=== PATIENT | male | born 1970 | race Caucasian/White ===

== ENCOUNTER 2016-10-19 00:18 | Emergency (ER) | payer BC ==
--- NOTE | 2016-10-19 01:07 | EDM.PDOC ---
ED HPI RENAL/ - General Chief Complaint: Genitourinary Problem Stated Complaint: kidney stone Time Seen by Provider: 10/19/16 00:50 Source of Information: Reports: Patient History Limitations: Reports: No limitations - History of Present Illness INITIAL COMMENTS - FREE TEXT/NARRATIVE: Patient presents with a kidney stone that he passed here in the ER while urinating in a container. He says his right sided abdominal pain was 7/10 at the most and is now down to 4. He doesn't want anything for the pain but does want to know if more stones are in the ureter or just in the kidneys. He had a CT a year ago and thinks he has 7 stones in right kidney and 6 in left. He felt a stinging pain in his penis as the stone exited but denies any other pain with urination. Urine is clear in appearance and the stone is visible. I would estimate 4-5 mm in size. - Related Data Allergies/ADRs: Allergies Allergy/AdvReac Type Severity Reaction Status Date / Time No Known Drug Allergies Allergy Cannot Verified 10/19/16 00:26 Remember Home Meds: Home Meds Lisinopril 20 mg PO DAILY 10/19/16 [History] ED ROS GENERAL - Review of Systems Review Of Systems: See Below Constitutional: Denies: fever, chills HEENT: Denies: Throat pain Respiratory: Denies: Shortness of Breath Cardiovascular: Denies: Chest pain, Syncope GI/Abdominal: Reports: Abdominal pain. Denies: Nausea, Vomiting : Reports: flank pain (right side). Denies: dysuria, hematuria Musculoskeletal: Reports: no symptoms Skin: Denies: cyanosis, jaundice, mottled, pallor, diaphoresis Neurological: Denies: Confusion, Dizziness, Headache, Seizure, Syncope Psychiatric: Denies: Agitation, Anxiety, Confusion ED EXAM, RENAL/ - Physical Exam Exam: See Below Exam Limited By: No limitations General Appearance: alert, WD/WN, no apparent distress Eye Exam: bilateral eye: EOMI, normal inspection, PERRL Ears: normal external exam, hearing grossly normal Nose: normal inspection, no blood Throat/Mouth: Normal voice, No airway compromise Head: atraumatic, normocephalic Neck: full range of motion Respiratory/Chest: no respiratory distress, lungs clear, normal breath sounds Cardiovascular: regular rate, rhythm, no murmur GI/Abdominal: soft, non tender Back Exam: No: CVA tenderness (L), CVA tenderness (R) Extremities: normal inspection, normal range of motion Neurological: alert, oriented, normal cognition, no motor/sensory deficits Psychiatric: normal affect, normal mood Skin Exam: Warm, Dry, Intact, Normal color, No rash Course - Vital Signs Last Recorded V/S: Last Vital Signs Temp 98.6 F 10/19/16 00:46 Pulse 86 10/19/16 00:46 Resp 20 10/19/16 00:46 BP 154/94 H 10/19/16 00:46 Pulse Ox 96 10/19/16 00:46 - Orders/Labs/Meds Orders: Active Orders 24 hr Category Date Time Status Abdomen Pelvis wo Cont [CT] Stat Exams 10/19/16 00:34 Ordered - Re-Assessments/Exams Free Text/Narrative Re-Assessment/Exam: 10/19/16 01:57 CT shows bilat non-obstructing nephrolithiasis and no other acute pathology. Discussed findings with patient who is comfortable and doesn't wish to have anything for pain now. Patient discharged in stable condition. Departure - Departure Time of Disposition: 01:55 Disposition: Home, Self-Care 01 Condition: good Clinical Impression: Recurrent nephrolithiasis Instructions: Kidney Stones, [id number] Forms: ED Department Discharge Additional Instructions: 1. Drink 8 cups of water daily to help prevent more stones from forming. 2. You may take Ibuprofen 600 mg up to three times a day for pain if needed. 3. Follow up with your PCP as needed. - My Orders Last 24 Hours: My Active Orders 10/19/16 00:34 Abdomen Pelvis wo Cont [CT] Stat - Assessment/Plan Last 24 Hours: My Active Orders 10/19/16 00:34 Abdomen Pelvis wo Cont [CT] Stat
[2016-10-19 01:55] VITALS: BP 143/87
== END 2016-10-19 02:00 | disposition home or self-care (01) ==
LOC: KA.ED 00:18
DX: N20.0 Calculus of kidney (principal); Z79.899 Other long term (current) drug therapy
CPT/HCPCS: 74176; 99284

== ENCOUNTER 2017-01-21 07:09 | Emergency (ER) | payer BC ==
[2017-01-21] MEDS ORDERED: Ketorolac 30 MG/ML SDV ONE (07:26)
[2017-01-21] MEDS ORDERED: Sodium Chloride 0.9% 1,000 ML ONE (07:27)
[2017-01-21 07:43] VITALS: BP 179/107
[2017-01-21 07:54] LABS: CHLORIDE,CL 103 mmol/L (98-115); SODIUM,NA 138 mmol/L (136-145)
--- NOTE | 2017-01-21 08:11 | EDM.PDOC ---
ED HPI GENERAL MEDICAL PROBLEM - General Chief Complaint: Flank Pain Stated Complaint: Left flank pain Time Seen by Provider: 01/21/17 08:00 Source of Information: Reports: Patient History Limitations: Reports: No Limitations - History of Present Illness INITIAL COMMENTS - FREE TEXT/NARRATIVE: 46 YO WM presents to ER complaining of left flank pain which began yesterday morning. Pt reports pain began after waking and was intermittent all day. Pt states his pain radiates to his left groin and left testicle. Pt states he has history of kidney stones- (3 episodes in last 2 years) and has been evaluated by urology in the remote past. Pt states his pain is similar to previous kidney stone attacks. Pt denies any dysuria, frequency or urgency, no fever/chills, and no testicular tenderness on self exam. Onset Date: 01/20/17 Duration: Day(s): (2) Location: Reports: Back Quality: Reports: Ache Severity: Moderate Improves with: Reports: None Worsens with: Reports: None Associated Symptoms: Reports: No Other Symptoms Left Flank Pain Score (Numeric/FACES): 6 - Related Data Allergies Allergy/AdvReac Type Severity Reaction Status Date / Time No Known Drug Allergies Allergy Cannot Verified 01/21/17 07:18 Remember Home Meds: Home Meds Lisinopril 20 mg PO DAILY 10/19/16 [History] Hydrocodone/Acetaminophen [Hydrocodon-Acetaminophn 10-325] 1 tab PO Q4H PRN #15 tablet 01/21/17 [Rx] Tamsulosin [Flomax] 0.4 mg PO ONETIME #10 cap.er 01/21/17 [Rx] Past Medical History Cardiovascular History: Reports: Hypertension Genitourinary History: Reports: Renal Calculus Musculoskeletal History: Reports: Arthritis, Back Pain, Chronic Neurological History: Reports: Concussion, Vertigo - Past Surgical History HEENT Surgical History: Reports: Oral Surgery Social & Family History - Family History Family Medical History: Noncontributory - Tobacco Use Smoking Status *Q: Never Smoker Second Hand Smoke Exposure: No - Caffeine Use Caffeine Use: Reports: Coffee, Soda - Alcohol Use Days Per Week of Alcohol Use: 2 Number of Drinks Per Day: 2 Total Drinks Per Week: 4 - Recreational Drug Use Recreational Drug Use: No ED ROS GENERAL - Review of Systems Review Of Systems: See Below Constitutional: Reports: No Symptoms HEENT: Reports: No Symptoms Respiratory: Reports: No Symptoms Cardiovascular: Reports: No Symptoms Endocrine: Reports: No Symptoms GI/Abdominal: Reports: No Symptoms : Reports: Flank Pain. Denies: Dysuria, Frequency, Hematuria, Urgency, Urinary Retention Musculoskeletal: Reports: No Symptoms Skin: Reports: No Symptoms Neurological: Reports: No Symptoms Psychiatric: Reports: No Symptoms Hematologic/Lymphatic: Reports: No Symptoms Immunologic: Reports: No Symptoms ED EXAM, RENAL/ - Physical Exam Exam: See Below Exam Limited By: No Limitations General Appearance: Alert, WD/WN, No Apparent Distress Head: Atraumatic, Normocephalic Neck: Normal Inspection, Supple, Non-Tender, Full Range of Motion Respiratory/Chest: No Respiratory Distress, Lungs Clear, Normal Breath Sounds, No Accessory Muscle Use, Chest Non-Tender Cardiovascular: Normal Peripheral Pulses, Regular Rate, Rhythm, No Edema, No Gallop, No JVD, No Murmur, No Rub GI/Abdominal: Normal Bowel Sounds, Soft, Non-Tender, No Organomegaly, No Distention, No Abnormal Bruit, No Mass Back Exam: CVA Tenderness (L) Extremities: Normal Inspection, Normal Range of Motion, Non-Tender, Normal Capillary Refill, No Pedal Edema Neurological: Alert Psychiatric: Normal Affect, Normal Mood Skin Exam: Warm, Dry, Intact, Normal Color, No Rash Lymphatic: No Adenopathy Course - Vital Signs Last Recorded V/S: Last Vital Signs Temp 36.6 C 01/21/17 07:12 Pulse 73 01/21/17 07:12 Resp 16 01/21/17 07:12 BP 179/107 H 01/21/17 07:12 Pulse Ox 96 01/21/17 07:12 - Orders/Labs/Meds Orders: Active Orders 24 hr Category Date Time Status Abdomen Pelvis wo Cont [CT] Stat Exams 01/21/17 07:20 Taken Sodium Chloride 0.9% [Normal Saline] 1,000 ml Med 01/21/17 08:29 Active IV .BOLUS Medication Orders Sodium Chloride (Normal Saline) 1,000 mls @ 999 mls/hr IV .BOLUS ONE Stop: 01/21/17 09:29 Labs: Laboratory Tests 01/21/17 01/21/17 01/21/17 Range/Units 07:25 07:25 08:10 WBC 8.5 (5.0-10.0) 10^3/uL RBC 4.90 (4.50-6.00) 10^6/uL Hgb 15.4 (13.0-17.0) g/dL Hct 45.3 (40.0-52.0) % MCV 92.4 H (82.0-92.0) fL MCH 31.3 H (27.0-31.0) pg MCHC 33.9 (32.0-36.0) g/dL RDW 12.9 (11.5-14.5) % Plt Count 288 (150-300) 10^3/uL MPV 7.1 L (7.4-10.4) fL Neut % (Auto) 75.3 H (50.0-70.0) % Lymph % (Auto) 12.7 L (20.0-40.0) % [place] % (Auto) 9.4 H (2.0-8.0) % Eos % (Auto) 1.8 (1.0-3.0) % Baso % (Auto) 0.8 (0.0-1.0) % Neut # (Auto) 6.3 (2.5-7.0) 10^3/uL Lymph # (Auto) 1.1 (1.0-4.0) 10^3/uL [place] # (Auto) 0.8 (0.1-0.8) 10^3/uL Eos # (Auto) 0.2 (0.1-0.3) 10^3/uL Baso # (Auto) 0.1 (0.0-0.1) 10^3/uL Sodium 138 (136-145) mmol/L Potassium 4.1 (3.3-5.3) mmol/L Chloride 103 (98-115) mmol/L Carbon Dioxide 26.3 (21.0-32.0) mmol/L BUN 16 (6-25) mg/dL Creatinine 1.07 (0.51-1.17) mg/dL Est Cr Clr Drug Dosing 84.35 mL/min Estimated GFR (MDRD) > 60 mL/min Glucose 136 H (70-110) mg/dL Calcium 9.0 (8.7-10.3) mg/dL Specimen Type Urinvoid Urine Color Yellow (YELLOW) Urine Appearance Clear (CLEAR) Urine pH 5.5 (5.0-9.0) Ur Specific [place] 1.020 (1.005-1.030) Urine Protein Negative (NEGATIVE) mg/dL Urine Glucose (UA) Negative (NEGATIVE) mg/dL Urine Ketones Negative (NEGATIVE) mg/dL Urine Occult Blood Moderate H (NEGATIVE) Urine Nitrite Negative (NEGATIVE) Urine Bilirubin Negative (NEGATIVE) Urine Urobilinogen 0.2 (0.2-1.0) E.U./dL Ur Leukocyte Esterase Negative (NEGATIVE) Urine RBC 10-20 H /HPF Urine WBC 0-5 /HPF Ur Epithelial Cells Not seen /LPF Urine Bacteria Not seen (NONE TO FEW) /HPF Meds: Medications Generic Name Dose Route Start Last Admin Trade Name Freq PRN Reason Stop Dose Admin Sodium Chloride 1,000 mls @ 999 mls/hr 01/21/17 08:29 Normal Saline IV 01/21/17 09:29 .BOLUS ONE Discontinued Medications Generic Name Dose Route Start Last Admin Trade Name Freq PRN Reason Stop Dose Admin Sodium Chloride Confirm 01/21/17 07:27 01/21/17 07:37 Normal Saline Administered 01/21/17 07:28 Not Given Dose 1,000 mls @ as directed .ROUTE .STK-MED ONE Ketorolac Tromethamine Confirm 01/21/17 07:26 01/21/17 07:37 Toradol Administered 01/21/17 07:27 Not Given Dose 30 mg .ROUTE .STK-MED ONE Ketorolac Tromethamine 30 mg 01/21/17 08:29 Toradol IVPUSH 01/21/17 08:30 ONETIME ONE - Radiology Interpretation Free Text/Narrative:: CT abd/pelvis- 3mm proximal left ureteral calculi with mild left hydronephrosis. Departure - Departure Time of Disposition: 08:28 Disposition: Home, Self-Care 01 Condition: Good Clinical Impression: Ureteric colic, Recurrent nephrolithiasis - Discharge Information Prescriptions: Hydrocodone/Acetaminophen [Hydrocodon-Acetaminophn 10-325] 1 tab PO Q4H PRN #15 tablet PRN Reason: Pain Tamsulosin [Flomax] 0.4 mg PO ONETIME #10 cap.er Instructions: Kidney Stones, [id number] Referrals: Umang Mendoza MD [Primary Care Provider] - Forms: ED Department Discharge - My Orders Last 24 Hours: My Active Orders 01/21/17 07:20 Abdomen Pelvis wo Cont [CT] Stat 01/21/17 08:29 Sodium Chloride 0.9% [Normal Saline] 1,000 ml IV .BOLUS - Assessment/Plan Last 24 Hours: My Active Orders 01/21/17 07:20 Abdomen Pelvis wo Cont [CT] Stat 01/21/17 08:29 Sodium Chloride 0.9% [Normal Saline] 1,000 ml IV .BOLUS Assessment:: 1. kidney stone 2. left flank pain Plan: 1. discharge home 2. hydrocodone 10/325 Q6 PRN pain 3. flomax 0.4mg PO QD 4. follow up with urology for further evaluation and treatment
[2017-01-21] MEDS ORDERED: Ketorolac 30 MG/ML SDV IVPUSH ONE (08:29)
[2017-01-21] MEDS ORDERED: Sodium Chloride 0.9% 1,000 ML IV ONE (08:29)
== END 2017-01-21 08:48 | disposition home or self-care (01) ==
LOC: KA.ED 07:09
DX: N13.2 Hydronephrosis with renal and ureteral calculous obstruction (principal); I10 Essential (primary) hypertension; M19.90 Unspecified osteoarthritis, unspecified site; Z79.899 Other long term (current) drug therapy
CPT/HCPCS: 74176; 80048; 81001; 85025; 96361; 96374; 99284; J1885; J7030